=== PATIENT | female | born 1950 | race African-American/Black ===

== ENCOUNTER 2023-12-02 19:55 | Emergency (ER) | payer MEDICARE ==
[2023-12-02] MEDS ORDERED: Acetaminophen 500 MG TAB ONE (21:56)
[2023-12-02] MEDS ORDERED: diphenhydrAMINE 50 MG/ML VIAL ONE (21:57)
[2023-12-02] MEDS ORDERED: Metoclopramide HCl 10 MG (2 mL) VIAL ONE (21:57)
[2023-12-03] MEDS ORDERED: Prochlorperazine 10 MG/2 ML VIAL ONE (00:04)
[2023-12-03] MEDS ORDERED: Ketorolac Tromethamine 30 MG (1 mL) VIAL ONE (00:04)
== END 2023-12-03 00:23 | disposition home or self-care (01) ==
LOC: ERS 19:55
DX: G43.909 Migraine, unspecified, not intractable, without status migrainosus (principal); I16.0 Hypertensive urgency; I10 Essential (primary) hypertension; E66.9 Obesity, unspecified; Z86.73 Personal history of transient ischemic attack (TIA), and cerebral infarction without residual deficits
CPT/HCPCS: 70450; 96374; 96375; 99284; J0780; J1200; J1885; J2765